=== PATIENT | female | born 1965 | race Caucasian/White ===

== ENCOUNTER → 2020-07-20 | Day surgery (SDC) | payer BC ==
[~2020-07-20] MED LIST: Ketamine 200 MG/20 ML MDV ONE; Lactated Ringers 1,000 ML IV SCH; Propofol 200 MG/20 ML SDV ONE; fentaNYL 100 MCG/2 ML SDV ONE
[2020-07-20 10:31] VITALS: BP 99/64; PULSE 78
--- NOTE | 2020-07-20 11:26 | OR ---
DATE OF OPERATION: 07/20/2020 PREOPERATIVE DIAGNOSIS: CHRONIC DIARRHEA. POSTOPERATIVE DIAGNOSIS: CHRONIC DIARRHEA. SURGEON: Surinder Swann MD PROCEDURE: DIAGNOSTIC COLONOSCOPY WITH RANDOM BIOPSIES X5. ANESTHESIA: MAC. COMPLICATIONS: None. SPECIMEN: Random biopsies from terminal ileum to rectosigmoid. FINDINGS: 1. Full-length colonoscopy. 2. Mild sigmoid diverticulosis. RECOMMENDATIONS: Medical followup with her primary provider, Alia Barkley for pathology results. INDICATIONS: The patient has been having ongoing diarrhea for almost 2 years. Alia sent her for diagnostic colonoscopy. DESCRIPTION OF PROCEDURE: The patient was prepped and draped, placed in the left lateral decubitus position. A lubricated Olympus colonoscope was inserted and with relative ease advanced to the cecum. We were able to intubate into the terminal ileum. The bowel prep was excellent. Upon withdrawal, we did do random biopsies from the terminal ileum all the way to the rectosigmoid region, totalling 5. Throughout the entire length of the colon, I could find no signs of this patient's diarrhea. There were no signs of colitis, polyps, masses, ulceration, or bleeding sites. No vascular abnormalities. The patient does have some mild diverticular disease in the sigmoid, but without inflammation. The rectal vault appeared benign. Retroflexion of the scope in the rectum showed no anal lesions. Air was suctioned and scope removed without complication. DAVID/MARY /[id number]
== END ==
LOC: CC.SDS 08:37
PROVIDERS: ATTEND Family Medicine
DX: K52.9 Noninfective gastroenteritis and colitis, unspecified (principal); K57.30 Diverticulosis of large intestine without perforation or abscess without bleeding; K21.9 Gastro-esophageal reflux disease without esophagitis; Z01.812 Encounter for preprocedural laboratory examination; Z20.822 Contact with and (suspected) exposure to COVID-19; Z79.82 Long term (current) use of aspirin; Z79.899 Other long term (current) drug therapy; Z88.5 Allergy status to narcotic agent; Z88.8 Allergy status to other drugs, medicaments and biological substances
CPT/HCPCS: 00812; J2704; J3010; J7120; U0002

== ENCOUNTER 2020-08-15 22:33 | Emergency (ER) | payer BC ==
[2020-08-15 23:15] LABS: CHLORIDE,CL 106 mEq/L (98-106); SODIUM,NA 142 mEq/L (136-145)
[2020-08-15 23:18] VITALS: BP 150/97; PULSE 99
[2020-08-15] MEDS ORDERED: Alum Hydrox/Mag Hydrox/Simeth 30 ML, Lidocaine 2% 15 ML PO ONE ×2 (23:30)
[2020-08-15] MEDS ORDERED: Sucralfate 1 GM Tab PO ONE (23:57)
--- NOTE | 2020-08-15 23:57 | EDM.PDOC ---
ED HPI GENERAL MEDICAL PROBLEM - General Chief Complaint: General Stated Complaint: tingling in arms and legs Time Seen by Provider: 08/15/20 22:33 Source of Information: Reports: Patient, Family History Limitations: Reports: No Limitations - History of Present Illness INITIAL COMMENTS - FREE TEXT/NARRATIVE: Sarah is a 55 yo female who presents to the ED with concerns of midsternal discomfort and numbness and tingling in her arms. She states symptoms have been ongoing and intermittent for days now. States she does have a hiatal hernia and did see the chiropractor who thought he could fix it. Questions if it is the pressure from the hiatal hernia causing the discomfort. Also admits to a history of Raynaud's so her feet and hands are always tingling. She denies any shortness of breath or exertional chest pain. States it feels it is getting worse though. States she does take Meloxicam regularly for her knees but hasn't helped her stomach at all. Mid-Sternal Chest Pain Score (Numeric/FACES): 3 - Related Data Allergies Allergy/AdvReac Type Severity Reaction Status Date / Time levofloxacin [From Levaquin] Allergy Cannot Verified 08/15/20 23:12 Remember lidocaine Allergy Cannot Verified 08/15/20 23:12 Remember procaine HCl [From Novocain] Allergy Cannot Verified 08/15/20 23:12 Remember Home Meds: Home Meds Pantoprazole [Protonix] 40 mg PO DAILY 07/04/16 [History] Rosuvastatin Calcium 20 mg PO DAILY 07/17/20 [History] Past Medical History HEENT History: Reports: Cataract Gastrointestinal History: Reports: Other (See Below) Other Gastrointestinal History: Colitis Musculoskeletal History: Reports: Other (See Below) Other Musculoskeletal History: Chronic knee pain Oncologic (Cancer) History: Reports: Other (See Below) Other Oncologic History: Vasocell - Past Surgical History HEENT Surgical History: Reports: Cataract Surgery GI Surgical History: Reports: Colonoscopy Social & Family History - Family History Family Medical History: No Pertinent Family History - Tobacco Use Tobacco Use Status *Q: Former Tobacco User Used Tobacco, but Quit: Yes Month/Year Tobacco Last Used: Long time ago - Caffeine Use Caffeine Use: Reports: Coffee - Recreational Drug Use Recreational Drug Use: No ED ROS GENERAL - Review of Systems Review Of Systems: See Below Constitutional: Reports: Chills, Weakness, Decreased Appetite. Denies: Fever HEENT: Reports: No Symptoms Respiratory: Denies: Shortness of Breath, Wheezing, Cough Cardiovascular: Reports: Chest Pain, Lightheadedness. Denies: Dyspnea on Exertion, Palpitations GI/Abdominal: Reports: Abdominal Pain, Distension, Nausea. Denies: Bloody Stool, Diarrhea, Vomiting : Reports: No Symptoms Musculoskeletal: Reports: Back Pain (chronic), Muscle Stiffness Skin: Reports: No Symptoms Neurological: Reports: No Symptoms ED EXAM, GENERAL - Physical Exam Exam: See Below Exam Limited By: No Limitations General Appearance: Alert, WD/WN, No Apparent Distress, Anxious Eye Exam: Bilateral Eye: Normal Inspection Ears: Normal External Exam, Hearing Grossly Normal Nose: Normal Inspection, Normal Mucosa, No Blood Throat/Mouth: Normal Inspection, Normal Lips, Normal Voice, No Airway Compromise Head: Atraumatic, Normocephalic Respiratory/Chest: No Respiratory Distress, Lungs Clear, Normal Breath Sounds, No Accessory Muscle Use Cardiovascular: Normal Peripheral Pulses, Regular Rate, Rhythm, No Edema, No Murmur GI/Abdominal: Normal Bowel Sounds, Soft, No Organomegaly, No Distention, No Mass, Tender (epigastric) Back Exam: No: Vertebral Tenderness Extremities: Normal Inspection, Normal Range of Motion, No Pedal Edema Neurological: Alert, Oriented, Normal Cognition, No Motor/Sensory Deficits Psychiatric: Anxious #1 Interpretation EKG Date: 08/15/20 Time: 23:00 Rhythm: NSR Course - Vital Signs Last Recorded V/S: Last Vital Signs Temp 97.1 F 08/15/20 23:17 Pulse 99 08/15/20 23:17 Resp 20 08/15/20 23:17 BP 150/97 H 08/15/20 23:17 Pulse Ox 99 08/15/20 23:17 - Orders/Labs/Meds Orders: Active Orders 24 hr Category Date Time Status Chest 2V [CR] Stat Exams 08/15/20 22:37 Taken Labs: Laboratory Tests 08/15/20 08/15/20 08/15/20 Range/Units 22:50 22:50 22:50 WBC 9.3 (5.0-10.0) 10^3/uL RBC 4.57 (4.00-5.50) 10^6/uL Hgb 13.6 (12.0-16.0) g/dL Hct 40.8 (37.0-47.0) % MCV 89.3 (82.0-94.0) fL MCH 29.8 (27.0-32.0) pg MCHC 33.3 (33.0-38.0) g/dL RDW Coeff of Dominga 13.3 (11.0-15.0) % Plt Count 323 (150-400) 10^3/uL Neut % (Auto) 46.2 (35-85) % Lymph % (Auto) 43.1 (10-55) % [place] % (Auto) 6.3 (0-16) % Eos % (Auto) 3.9 (0-5) % Baso % (Auto) 0.5 (0-3) % Neut # (Auto) 4.28 (1.80-7.00) 10^3/uL Lymph # (Auto) 4.00 (1.00-4.80) 10^3/uL [place] # (Auto) 0.58 (0.00-0.80) 10^3/uL Eos # (Auto) 0.36 (0.00-0.45) 10^3/uL Baso # (Auto) 0.05 10^3/uL PT 10.0 (9.7-12.3) SEC INR 0.99 (0.92-1.18) D-Dimer, Quantitative 0.19 (0.00-0.50) Sodium 142 (136-145) mEq/L Potassium 3.5 (3.5-5.0) mEq/L Chloride 106 (98-106) mEq/L Carbon Dioxide 27 (21-32) mmol/L BUN 12 (7-18) mg/dL Creatinine 0.8 (0.6-1.0) mg/dL Est Cr Clr Drug Dosing 75.26 mL/min Estimated GFR (MDRD) > 60 (>=60) mL/min Glucose 100 H (75-99) mg/dL Calcium 9.6 (8.4-10.1) mg/dL Total Bilirubin 0.4 (0.0-1.0) mg/dL AST 31 (15-37) U/L ALT 48 (12-78) U/L Alkaline Phosphatase 118 H (46-116) U/L Lactate Dehydrogenase 191 H (100-190) U/L Creatine Kinase 78 (21-215) U/L Troponin I < 0.017 (0.00-0.06) ng/mL Total Protein 8.1 (6.4-8.2) g/dL Albumin 4.2 (3.4-5.0) g/dL Lipase 86 (73-393) U/L SARS-CoV-2 RNA (GIN) (NEGATIVE) 08/15/20 Range/Units 23:06 WBC (5.0-10.0) 10^3/uL RBC (4.00-5.50) 10^6/uL Hgb (12.0-16.0) g/dL Hct (37.0-47.0) % MCV (82.0-94.0) fL MCH (27.0-32.0) pg MCHC (33.0-38.0) g/dL RDW Coeff of Dominga (11.0-15.0) % Plt Count (150-400) 10^3/uL Neut % (Auto) (35-85) % Lymph % (Auto) (10-55) % [place] % (Auto) (0-16) % Eos % (Auto) (0-5) % Baso % (Auto) (0-3) % Neut # (Auto) (1.80-7.00) 10^3/uL Lymph # (Auto) (1.00-4.80) 10^3/uL [place] # (Auto) (0.00-0.80) 10^3/uL Eos # (Auto) (0.00-0.45) 10^3/uL Baso # (Auto) 10^3/uL PT (9.7-12.3) SEC INR (0.92-1.18) D-Dimer, Quantitative (0.00-0.50) Sodium (136-145) mEq/L Potassium (3.5-5.0) mEq/L Chloride (98-106) mEq/L Carbon Dioxide (21-32) mmol/L BUN (7-18) mg/dL Creatinine (0.6-1.0) mg/dL Est Cr Clr Drug Dosing mL/min Estimated GFR (MDRD) (>=60) mL/min Glucose (75-99) mg/dL Calcium (8.4-10.1) mg/dL Total Bilirubin (0.0-1.0) mg/dL AST (15-37) U/L ALT (12-78) U/L Alkaline Phosphatase (46-116) U/L Lactate Dehydrogenase (100-190) U/L Creatine Kinase (21-215) U/L Troponin I (0.00-0.06) ng/mL Total Protein (6.4-8.2) g/dL Albumin (3.4-5.0) g/dL Lipase (73-393) U/L SARS-CoV-2 RNA (GIN) Negative (NEGATIVE) Meds: Medications Discontinued Medications Generic Name Dose Route Start Last Admin Trade Name Freq PRN Reason Stop Dose Admin Al Hydroxide/Mg Hydroxide 30 0 ml 08/15/20 23:30 08/15/20 23:34 ml/ Lidocaine HCl 15 ml PO 08/15/20 23:31 45 ml ONETIME ONE Administration Departure - Departure Time of Disposition: 23:58 Disposition: Home, Self-Care 01 Clinical Impression: Peptic ulcer disease - Discharge Information Instructions: Peptic Ulcer, [id number] Referrals: PCP,Unknown [Primary Care Provider] - Additional Instructions: 1) Stop the Meloxicam 2) Carafate 1gm 4 times a day 3) Increase Protonix to 40mg twice a day 4) Refrain from spicy foods, caffeine, alcohol, chocolate 5) Will get RUQ ultrasound in the am, nothing to eat or drink 8 hours prior to test 6) Return to ED if symptoms worsen or any concerns. Sepsis Event Note (ED) - Evaluation Sepsis Screening Result: No Definite Risk - Focused Exam Vital Signs: Vital Signs Temp Pulse Resp BP Pulse Ox 08/15/20 23:17 97.1 F 99 20 150/97 H 99 08/15/20 23:15 77 15 147/95 H 100 08/15/20 23:00 73 16 132/92 H 100 08/15/20 22:45 86 18 141/86 H 100 08/15/20 22:41 97.1 F 96 20 150/97 H 96 - Problem List & Annotations (1) Peptic ulcer disease SNOMED Code(s): 81950707 Code(s): K27.9 - PEPTIC ULC, SITE UNSP, UNSP AC OR CHR, W/O HEMOR OR PERF Status: Acute Current Visit: Yes (2) Abdominal discomfort, epigastric SNOMED Code(s): 322266832 Code(s): R10.13 - EPIGASTRIC PAIN Status: Acute Current Visit: Yes - My Orders Last 24 Hours: My Active Orders 08/15/20 22:37 Chest 2V [CR] Stat - Assessment/Plan Last 24 Hours: My Active Orders 08/15/20 22:37 Chest 2V [CR] Stat Plan: laboratory work was unremarkable. EKG showed NSR. Cardiac enzymes, d-dimer were negative. Chest x-ray negative. Will plan for RUQ ultrasound in am when fasting. Will start medication for possible peptic ulcer disease. Patient to be discharged in satisfactory condition.
== END 2020-08-16 00:16 | disposition home or self-care (01) ==
LOC: CC.ED 22:33
DX: K27.9 Peptic ulcer, site unspecified, unspecified as acute or chronic, without hemorrhage or perforation (principal); Z20.822 Contact with and (suspected) exposure to COVID-19; Z88.1 Allergy status to other antibiotic agents; Z88.4 Allergy status to anesthetic agent; Z87.891 Personal history of nicotine dependence; Z79.899 Other long term (current) drug therapy
CPT/HCPCS: 36415; 71046; 80053; 82550; 83615; 83690; 84484; 85025; 85379; 85610; 93005; 99285-25; A9270-GY; U0002